=== PATIENT | male | born 1965 | race Caucasian/White ===

== ENCOUNTER 2022-10-10 23:09 | Emergency (ER) | payer BC, SELFPAY ==
[2022-10-10 23:17] VITALS: BP 169/95; PULSE 76; RESP 18; TEMP 36.7; O2SAT 99; BMI 35.9
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
== END 2022-10-11 00:28 | disposition home or self-care (01) ==
LOC: ED 10-11 00:21
PROVIDERS: Emergency Provider Family Medicine; PCP Family Medicine
DX: S16.1XXA Strain of muscle, fascia and tendon at neck level, initial encounter (principal); V86.55XA Driver of 3- or 4- wheeled all-terrain vehicle (ATV) injured in nontraffic accident, initial encounter
CPT/HCPCS: 99283

== ENCOUNTER 2024-03-20 08:26 | Outpatient (CLI) | payer BC, SELFPAY | END 2024-03-20 08:27 | disposition home or self-care (01) | PROVIDERS: PCP Family Medicine; Visit Provider Family Medicine | DX: Z00.00 Encounter for general adult medical examination without abnormal findings (principal); E78.5 Hyperlipidemia, unspecified; E13.9 Other specified diabetes mellitus without complications; E66.9 Obesity, unspecified; Z12.5 Encounter for screening for malignant neoplasm of prostate | CPT/HCPCS: 80048; 80061; G0103 ==

== ENCOUNTER 2025-04-16 10:29 | Outpatient (CLI) | payer BC, SELFPAY | END 2025-04-16 10:30 | disposition home or self-care (01) | PROVIDERS: PCP Family Medicine; Visit Provider Family Medicine | DX: Z01.818 Encounter for other preprocedural examination (principal); E78.5 Hyperlipidemia, unspecified | CPT/HCPCS: 80048; 80061 ==